=== PATIENT | female | born 1990 | race Caucasian/White ===

== ENCOUNTER 2022-02-07 12:54 | Outpatient (CLI) | payer BC, SELFPAY ==
--- NOTE | 2022-02-07 13:00 | CRLHL7_ITS ---
For Patients: As a result of the Century Cures Act, medical imaging exams and procedure reports are released immediately into your electronic medical record. You may view this report before your referring provider. If you have questions, please contact your health care provider. INDICATION: Evaluate anatomy. COMPARISON: 11/08/2021 TECHNIQUE: Real time robledo scale imaging of the fetus was performed as well as color Doppler analysis of the umbilical vessels. FINDINGS: Sonographic imaging demonstrates a single living intrauterine gestation. Fetus demonstrates a regular cardiac rate of 159 beats per minute. Fetus has a breech position. The placenta lies posteriorly without evidence of placenta previa. The edge of the placenta is located 3.1 cm from the internal cervical os. Amniotic fluid volume appears normal. Single deepest vertical pocket: 5.2 cm. The cervix is closed and measures 4.8 cm in length. The composite ultrasound gestational age is calculated at 20 weeks 4 days with an estimated sonographic due date of 06/23/2022. The estimated weight is 389 grams which lies at the 74th %. The following biometric measurements were obtained: Biparietal diameter: 4.4 cm/19 weeks 3 days 13th% Head circumference: 18.0 cm/20 weeks 3 days 39th% Abdominal circumference: 16.6 cm/21 weeks 4 days 81st% Femur length: 3.3 cm/20 weeks 3 days 43rd% The HC/AC ratio measures: 1.08 range (1.07-1.25) On anatomic survey, there is a normal appearance of the cerebral ventricles, cavum septi pellucidi, cisterna magna and cerebellum. The nose, lips, and facial profile appear normal. The cervical, thoracic and lumbar spine are well visualized and appear normal. There is a normal four-chamber heart view and the left and right ventricular outflow tracts appear normal. The diaphragm and stomach appear normal. The kidneys and bladder also appear normal. There is a normal three-vessel cord and cord insertion site. The four extremities appear normal. IMPRESSION: Normal OB ultrasound exam with concordance of clinical and sonographic dating. No intrinsic abnormalities noted on anatomic survey. Dictated by Dell Melissa MD @ 02/07/2022 3:09:31 PM (Electronically Signed)
== END 2022-02-07 12:55 | disposition home or self-care (01) ==
LOC: US 12:56
PROVIDERS: Visit Provider Obstetrics & Gynecology
DX: Z34.92 Encounter for supervision of normal pregnancy, unspecified, second trimester (principal); Z3A.20 20 weeks gestation of pregnancy
CPT/HCPCS: 76805

== ENCOUNTER 2022-04-03 12:07 | Outpatient (CLI) | payer BC, SELFPAY ==
[2022-04-06 09:59] LABS: Rapid Plasma Reagin (RPR) Non Reactive (Non Reactive)
== END 2022-04-03 12:08 | disposition home or self-care (01) ==
PROVIDERS: Visit Provider Physician Assistant
DX: O26.899 Other specified pregnancy related conditions, unspecified trimester (principal); Z67.91 Unspecified blood type, Rh negative; E03.9 Hypothyroidism, unspecified; Z3A.28 28 weeks gestation of pregnancy
CPT/HCPCS: 84443; 86592; 86850

== ENCOUNTER 2022-05-02 14:00 | Outpatient (CLI) | payer BC, SELFPAY ==
--- NOTE | 2022-05-02 14:00 | CRLHL7_ITS ---
For Patients: As a result of the Century Cures Act, medical imaging exams and procedure reports are released immediately into your electronic medical record. You may view this report before your referring provider. If you have questions, please contact your health care provider. INDICATION: Third trimester scan, evaluate growth. COMPARISON: 02/07/2022 TECHNIQUE: Real time robledo scale imaging of the fetus was performed. FINDINGS: Sonographic imaging demonstrates a single living intrauterine gestation. Fetus demonstrates a regular cardiac rate of 143 beats per minute. Fetus has a vertex position. The placenta lies posteriorly. Amniotic fluid volume appears normal and there is a single deepest vertical pocket: 4.2 cm. The estimated weight is 2240gm which lies at the 78th %. On the prior OB ultrasound exam dated 02/07/2022 the estimated weight was at the 74th%. BPD 10th percentile. HC 33rd percentile. AC 92nd percentile. FL 70th percentile. The HC/AC ratio measures 0.99 range (0.96-1.11). IMPRESSION: Sonographic gestational age 33 weeks 0 days and sonographic due date 06/20/2022. Sonographic age is 4 days ahead of the clinical age. Estimated weight 78th percentile. Abdominal circumference 92nd percentile. Dictated by Dell Melissa MD @ 05/05/2022 10:08:02 AM (Electronically Signed)
== END 2022-05-02 14:01 | disposition home or self-care (01) ==
LOC: US 14:01
PROVIDERS: Visit Provider Physician Assistant
DX: O98.513 Other viral diseases complicating pregnancy, third trimester (principal); U07.1 COVID-19; Z3A.33 33 weeks gestation of pregnancy
CPT/HCPCS: 76816

== ENCOUNTER 2022-06-02 13:14 | Outpatient (CLI) | payer BC, SELFPAY ==
--- NOTE | 2022-06-02 13:00 | CRLHL7_ITS ---
For Patients: As a result of the Century Cures Act, medical imaging exams and procedure reports are released immediately into your electronic medical record. You may view this report before your referring provider. If you have questions, please contact your health care provider. INDICATION: Third trimester scan, evaluate growth. +Covid in COMPARISON: 05/02/2022 TECHNIQUE: Real time robledo scale imaging of the fetus was performed. FINDINGS: Sonographic imaging demonstrates a single living intrauterine gestation. Fetus demonstrates a regular cardiac rate of 150 beats per minute. Fetus has a vertex position. The placenta lies fundal posterior. Amniotic fluid volume appears normal and there is a single deepest vertical pocket: 6.1 cm. The estimated weight is 3291gm which lies at the 78th %. On the prior OB ultrasound exam dated 05/02/2022 the estimated weight was at the 78th%. BPD 10th percentile. HC 40th percentile. AC greater than 97th percentile. FL 11th percentile. The HC/AC ratio measures 0.93 range (0.92-1.06). IMPRESSION: Sonographic gestational age 36 weeks 5 days and sonographic due date 06/25/2022. Good correlation with dates. Normal interval growth. Estimated weight at the 78th percentile. Abdominal circumference greater than 97th percentile. Dictated by Dell Melissa MD @ 06/04/2022 8:40:21 AM (Electronically Signed)
== END 2022-06-02 13:15 | disposition home or self-care (01) ==
LOC: US 13:15
PROVIDERS: Visit Provider Obstetrics & Gynecology
DX: O98.512 Other viral diseases complicating pregnancy, second trimester (principal); U07.1 COVID-19; Z3A.36 36 weeks gestation of pregnancy
CPT/HCPCS: 76816; 87081; 87653

== ENCOUNTER 2022-06-21 21:33 | Inpatient (IN) | payer BC, SELFPAY ==
[2022-06-21 21:46] VITALS: BP 125/71; PULSE 71; PULSE 87; O2SAT 97
--- NOTE | 2022-06-21 22:03 | PM.OBHPLI ---
OB - H&P: HPI Labor/Induction History of Present Illness Time Seen by Provider: 22:03 Date Seen: 06/21/22 Chief Complaint: Labor Chief complaint: Maternity Narrative: The patient is a 32 year old 3 para 1011 at 39 weeks 4 days gestation by ultrasound, who presents with labor. Patient complaining of contractions every 3-5 minutes lasting for approximately 1 minute each. She endorses loss of mucous plug but no vaginal bleeding since. Denies LOF. Patient presents to L&D at 8-9 cm dilation with regular contractions. Patient denies fever, chills, chest pain, SOB, n/v, headache, vision changes, RUQ pain, or dizziness. Review of Systems Status of ROS: Reports: 10 or more systems reviewed and unremarkable except as noted in History and below Meds Home Medications and Allergies Home Medications Medication Instructions Recorded Confirmed Type docosahexaenoic acid 200 mg 200 mg PO DAILY 02/07/22 06/21/22 History capsule ( DHA) doxylamine succinate 25 mg tablet 25 mg PO .Bedtime 02/07/22 06/21/22 History magnesium oxide 400 mg (241.3 mg 400 mg PO DAILY 02/07/22 06/21/22 History magnesium) tablet omeprazole 20 mg tablet,delayed 20 mg PO QDAY 02/28/22 06/21/22 History release aspirin 81 mg capsule 81 mg PO QDAY 04/03/22 06/21/22 History butalbital 50 mg-acetaminophen 300 1 cap PO Q6H PRN 05/02/22 06/21/22 History mg capsule Allergies Allergy/AdvReac Type Severity Reaction Status Date / Time No Known Allergies Allergy Unverified 06/16/22 13:01 OB - H&P: Exam Physical Exam: Vital signs: Pulse BP Pulse Ox 71 125/71 97 06/21/22 21:46 06/21/22 21:46 06/21/22 21:46 Narrative: Physical exam: General: Wincing when she's lilly otherwise, no acute distress. Psych: Alert and oriented x3, full affect HEENT: Normocephalic, atraumatic Lungs: Unlabored breathing between contractions. Abdomen: Palpable contractions. Otherwise, soft, no tenderness, rebound, or guarding. Skin: No lesions or rashes Lower extremities: No edema or erythema Pelvic: SVE 9/100/-1
[2022-06-21 22:20] LABS: SARS PCR* Negative SARS-CoV-2 (Negative)
[2022-06-21] MEDS: OXYTOCIN 10 UNIT/ML INJ IM (23:08)
[2022-06-21] MEDS: LIDOCAINE 1% MDV 20 ML INJECTION (23:13)
[2022-06-21 23:17] VITALS: BP 127/75; PULSE 85
--- NOTE | 2022-06-21 23:29 | PM.OBPRCVD ---
Procedure Delivery date: 06/21/22 Procedure Done: Global Intrapartal Events: None Delivery monitor: external FHT Route of delivery: Episiotomy description: None Laceration description: Perineal - 1st Degree Delivery repair: Chromic Estimated blood loss (mL): 150 Anesthesia type: Nitrous gas Disposition: floor Complications: None Narrative: The patient is a 32 year-old G 3 P 1011 admitted on 06/21/2022 at 39 and 4/7 weeks gestation for spontaneous onset of labor. Cervical exam on admission was 9 cm/100 % effaced/-1station with membranes intact in vertex presentation. Contractions were every 3-5 minutes. heart rate demonstrated baseline 150 bpm with moderate variability, + accelerations, - decelerations; a category I tracing. GBS negative. SROM occurred at 1213 on 06/21 with clear fluid. Labor Analgesia: Nitrous Gas Pitocin: No Labor onset: 06/21 at 1820 Complete: 06/21 at 2242 Pushin/3 at 2254 Delivery time: 2305 heart tones during second stage were Cat II At time a viable male delivered in vertex OA presentation over intact perineum via spontaneous vaginal delivery. Infant was placed on maternal abdomen. Cord was clamped and cut. Nose and mouth were bulb suctioned. weight: 7lb 10oz. 7 at 1 minute and 8 at 5 minutes. Shoulder dystocia: No. Nuchal cord: No. Terminal meconium noted. Placenta delivered spontaneously and complete at 2306 with a 3 vessel cord. Complications: None. Mother and were stable after delivery. Laceration(s): 1st degree, repaired with 2-0 chromic. Estimated blood loss: 150 mL. Sponge and needles counts are correct. Mother and were stable at the time of this note. Infant Gender: Male OB Vag Delivery Procedures Additional Procedures ECV: No Cook Catheter Insertion: No NST: Yes D&C: No Laceration Repair: Yes Tubal Ligation : No Other: No
[2022-06-21 23:32] VITALS: BP 127/63; PULSE 85
[2022-06-21 23:47] VITALS: BP 128/64; PULSE 84
[2022-06-21 23:54] VITALS: BMI 40.6
[2022-06-22] VITALS (11 sets, daily range): BP systolic 120–138; BP diastolic 57–86; PULSE 75–95; RESP 16–18; TEMP 36.3–36.8; O2SAT 94–96
[2022-06-22] MEDS: IBUPROFEN 600 MG TABLET PO ×4 (00:13→21:21)
[2022-06-22] MEDS: ACETAMINOPHEN 500 MG TABLET 1000 MG PO ×2 (02:24→17:14)
[2022-06-22 07:30] LABS: Hemoglobin* 12.7 gm/dL (12.0-16.0)
[2022-06-22] MEDS: MEASLES,MUMPS,RUBELLA VACC/PF 1 DOSE INJ 1 EACH SUBCUT (08:30)
[2022-06-22] MEDS: DOCUSATE SODIUM 100 MG CAPSULE PO (08:30)
--- NOTE | 2022-06-22 08:38 | PM.OBPNVD1 ---
OB - PN:Subj Subjective Time Seen by Provider: 08:38 Date Seen: 06/22/22 Narrative: Overnight patient had no complaints. Her pain is well controlled on oral pain medications. She is tolerating a regular diet. She has passed flatus. She is ambulating without difficulty. Lochia is scant. She is urinating without glasgow. Patient denies chest pain, SOB, n/v, headache, RUQ pain, vision changes, dizziness. OB - PN: Obj Exam Physical Exam: Vital signs: Temp Pulse Resp BP Pulse Ox O2 Del Method 97.7 F 95 18 129/82 96 06/22/22 07:30 06/22/22 07:30 06/22/22 07:30 06/22/22 07:30 06/22/22 07:30 06/22/22 07:30 Narrative: Physical exam: General: No acute distress Psych: Alert and oriented x3, full affect HEENT: Normocephalic, atraumatic Heart: Regular rate and rhythm, no murmur rub or gallop Lungs: Clear to auscultation bilaterally Abdomen: Normoactive bowel sounds, soft, no tenderness, rebound, or guarding Skin: No lesions or rashes Lower extremities: No edema or erythema Pelvic exam: Scant lochia OB - PN: Obj Data Labs Labs: Laboratory Results - last 24 hr 06/21/22 06/22/22 21:31 07:08 Hgb 12.7 SARS-CoV-2 (PCR) Negative SARS-CoV-2 OB - PN: A/P Vaginal Delivery Assessment and Plan (1) Status post vaginal delivery: Status: Acute (2) Rubella non-immune status, delivered, current hospitalization: Status: Acute Plan Comments: Review: - Admitted for: labor - Normal spontaneous vaginal delivery - Estimated blood loss: 150 mL - Intraoperative Complications: none - Urine output: adequate - Pre-delivery Hgb: 12.7 - Post-delivery Hgb: 12.7 - Postoperative care: - Diet: Advance as tolerated - Fluid: Encourage oral intake - Activity: Encourage ambulation - Pain: Tylenol and Ibuprofen Discharge Planning - Vaccines: MMR, possible Rhogam - Follow Up: follow-up in 2 and 6 weeks in clinic Baby's Status - Fetus: 7, 8/ 3540 g, Male - Location: bedside Dispo: Patient is PPD#1. Need the following milestones: None. Not yet 24 hour s/p delivery. Anticipate discharge PPD#2.
[2022-06-23] VITALS: BP 120/76; BP 138/89; PULSE 91; PULSE 92; RESP 18; TEMP 36.4; TEMP 36.8; O2SAT 95; O2SAT 96
[2022-06-23] MEDS: ACETAMINOPHEN 500 MG TABLET 1000 MG PO ×3 (00:23→14:19)
[2022-06-23 04:00] VITALS: BP 125/89
[2022-06-23] MEDS: IBUPROFEN 600 MG TABLET PO ×3 (04:16→17:29)
--- NOTE | 2022-06-23 07:40 | PM.OBDSVD1 ---
DS: Providers Provider Date Seen: 06/23/22 Date of admission: 06/21/22 21:33 Primary care physician: Not a Local Provider Admitting Clinician: Evangelina Sue MD Attending Physician on discharge: Katerina Cisneros CNM DS: Diagnosis Discharge Diagnosis (1) care and examination immediately after delivery: Status: Acute (2) Status post vaginal delivery: Status: Acute (3) Lactating mother: Status: Acute Exam Const: Vital Signs, click to edit/add: Vital Signs - 24 hr 06/22/22 13:25 06/22/22 17:26 06/22/22 20:00 Temperature 97.6 F 97.3 F L Pulse Rate [Pulse Oximeter] 86 81 91 Respiratory Rate 16 16 18 Blood Pressure [Le ft Arm] 126/85 138/86 120/76 Pulse Oximetry 94 95 Oxygen Delivery Me thod Room Air Room Air Room Air 06/23/22 00:00 06/23/22 00:00 06/23/22 04:00 Temperature 97.6 F 98.3 F Pulse Rate [Pulse Oximeter] 91 92 Respiratory Rate 18 18 Blood Pressure [Le ft Arm] 120/76 138/89 125/89 Pulse Oximetry 95 96 Oxygen Delivery Me thod Room Air Room Air Documenting provider has reviewed patient's vital signs: yes Common normals: no apparent distress, oriented x3, healthy appearing and alert HENMT: Common normals: normocephalic Head and scalp: normocephalic Eye: Common normals: PERRL Pupil: PERRL Neck & C-Spine: Common normals: full ROM and supple Chest: Common normals: inspection of chest normal Resp: Common normals: normal respiratory effort and clear to auscultation bilaterally Auscultation: clear to auscultation bilaterally Cardio: Common normals: regular rate and regular rhythm Rate: regular rate Rhythm: regular rhythm GI: Common normals: soft to palpation Palpation: soft : OB/external & speculum: Yes perineal/vaginal laceration Laceration: 1st (well approximated) Uterus: U/U Lochia: small Back & Pelvis: Common normals: thoracic and lumbar spine normal to inspection Extremity: Common normals: normal to inspection and full ROM Neuro: Common normals: oriented x3 Sensorium/orientation: alert Speech: speech normal Psych: Common normals: mental status grossly normal, thought process normal, speech normal and activity/motor behavior normal Speech: normal speech Thought process: normal thought process Skin: Common normals: no rashes or lesions noted General skin exam: no rashes or lesions noted OB - DS: Summary Hospital Course Hospital Course: The patient is a 32 year old G 3 P 2012 at 39 4/7 weeks gestation that was admitted to the [facility] on 06/21/22 for spontaneous onset of labor. She had an uncomplicated vaginal delivery. She delivered a viable male infant. the patient has done well. The pain is well controlled with current medications.? She has has concerns about her cough which started about 2 months ago but causing her pain when she coughs. Plan to try albuterol inhaler and Robitussin.? Urinary output is adequate and she is voiding without difficulty.? Has a good appetite, is tolerating a general diet, is passing flatus, and has had a bowel movement.? Has scant amount of rubra lochia.? She is ambulating well. She is and reports it is going well. Peripartum Data Infant delivery method: Vaginal Laceration description: Perineal - 1st Degree complications: none Infant Gender: Male Infant Discharge Plan: Home Status at Discharge Functional status at discharge: independent ambulation Overall status at discharge: patient is progressing back to baseline Time Spent with Patient Time attestation: Total time spent providing and/or coordinating discharge services: Discharge Plan Discharge Disposition: Home, Self-Care Date of Admission: 06/21/22 21:33 Primary Care Provider: Provider,Not a Local Condition: Stable Anticipated Discharge Date/Time: 06/23/22 08:00 Discharge Medications: New acetaminophen 500 mg Tablet 1,000 mg PO Q6H PRNQty: 0 0RF guaifenesin 100 mg/5 mL Liquid 100 mg PO Q4H PRN (Reason: Cough) Qty: 0 0RF docusate sodium 100 mg Capsule 100 mg PO DAILY Qty: 90 0RF ibuprofen 600 mg Tablet 600 mg PO Q6H PRNQty: 0 0RF albuterol sulfate [Ventolin HFA] 90 mcg/actuation Hfa Aerosol Inhaler 2 puff inhalation Q4H PRN (Reason: Cough) Qty: 0 0RF Continued aspirin 81 mg capsule 81 mg PO QDAY butalbital-acetaminophen 50-300 mg capsule 1 cap PO Q6H PRN DHA 200 mg capsule 200 mg PO DAILY magnesium oxide 400 mg (241.3 mg magnesium) tablet 400 mg PO DAILY omeprazole 20 mg tablet,delayed release (DR/EC) 20 mg PO QDAY levothyroxine 50 mcg tablet 50 mcg PO DAILY Qty: 90 0RF Discontinued doxylamine succinate 25 mg tablet 25 mg PO .Bedtime Discharge Orders: Discharge Order (Routine); Ordered 06/23/22 Ordered By: Katerina Cisneros Patient Education: OB Vaginal/Breast Feeding Additional Instructions: Discharge instructions were reviewed with the patient including signs and symptoms of infection and home going medications Nothing vaginally for 6 weeks: no tampons or intercourse Do not drive while taking narcotic pain medication(s) Off Work or School for 8 weeks 2-week visit: discuss feeding concerns, review control options and screen for anxiety/depression. 6-week visit for an annual exam. consultation services are available to all mothers and babies for the first year after delivery.? To make an appointment, please call [phone]. Activity Level: Activity as Tolerated Discharge Diet: Regular Follow Up Appointments: [facility] [Provider Group] (2 weeks and 6 weeks) Forms: mobiManage Info Instructions
[2022-06-23 08:30] VITALS: BP 121/83; PULSE 83; RESP 18; TEMP 36.8; O2SAT 97
[2022-06-23] MEDS: ALBUTEROL INHALER 2 PUFF IH (09:39)
[2022-06-23] MEDS: guaiFENesin 100 MG/ML CUP PO (09:39)
[2022-06-23] MEDS: LANOLIN CREAM 1 APPLIC TOPICAL (09:52)
[2022-06-23] MEDS: DOCUSATE SODIUM 100 MG CAPSULE PO (14:20)
[2022-06-23 15:19] VITALS: BP 130/82; PULSE 84; RESP 16; TEMP 36.8; O2SAT 96
[2022-06-23] MEDS: SIMETHICONE 80 MG TAB.CHEW PO (17:30)
== END 2022-06-23 19:33 | disposition home or self-care (01) | DRG 560 ==
LOC: OB OUT 21:33 → OB 21:33
PROVIDERS: Admitting Provider Obstetrics & Gynecology; Visit Provider Obstetrics & Gynecology
DX: O70.0 First degree perineal laceration during delivery (principal); O99.284 Endocrine, nutritional and metabolic diseases complicating childbirth; E03.9 Hypothyroidism, unspecified; Z3A.39 39 weeks gestation of pregnancy; Z37.0 Single live birth
CPT/HCPCS: 36415; 85018; 87635; A9270; J2590

== ENCOUNTER 2023-01-26 10:54 | Outpatient (CLI) | payer OTHER, SELFPAY | END 2023-01-26 10:55 | disposition home or self-care (01) | LOC: NFLDREF 10:55 | PROVIDERS: Visit Provider Obstetrics & Gynecology | DX: E03.9 Hypothyroidism, unspecified (principal) | CPT/HCPCS: 84443 ==

== ENCOUNTER 2024-05-09 13:34 | Outpatient (CLI) | payer BC, SELFPAY | END 2024-05-09 13:35 | disposition home or self-care (01) | LOC: NFLDREF 05-12 06:01 | PROVIDERS: Visit Provider Obstetrics & Gynecology | DX: E03.9 Hypothyroidism, unspecified (principal) | CPT/HCPCS: 84443 ==

== ENCOUNTER 2024-10-07 13:36 | Outpatient (CLI) | payer BC, SELFPAY ==
--- NOTE | 2024-10-07 13:45 | CRLHL7_ITS ---
For Patients: As a result of the Century Cures Act, medical imaging exams and procedure reports are released immediately into your electronic medical record. You may view this report before your referring provider. If you have questions, please contact your health care provider. INDICATION: First trimester dating and viability. TECHNIQUE: Ultrasound OB pelvis transabdominal and transvaginal. Real-time robledo-scale imaging of the pelvis was performed. COMPARISON: None. FINDINGS: Intrauterine gestation: Single. heart activity (bpm): Regular, 169. [place]iteriver-rump length: 5.6 cm. Estimated ultrasound age: 12 weeks 1 day. Gestational age by LMP: 12 weeks 0 day OSCAR by ultrasound: 04/20/2025. OSCAR by LMP: 04/21/2025 Perigestational hemorrhage: Subchorionic hemorrhage measures 2.3 x 0.9 x 2.2 cm. Ovaries and adnexa: Unremarkable. Corpus luteal cyst is identified on the left side. Suspicious pelvic fluid collections: None. IMPRESSION: Single viable intrauterine with estimated gestational age of 12 weeks 1 day. Small subchorionic hemorrhage. Dictated by Yaw Solis MD @ 10/10/2024 12:37:42 PM (Electronically Signed)
== END 2024-10-07 13:37 | disposition home or self-care (01) ==
LOC: US 13:38
PROVIDERS: Visit Provider Registered Nurse
DX: Z34.91 Encounter for supervision of normal pregnancy, unspecified, first trimester (principal); O20.9 Hemorrhage in early pregnancy, unspecified; Z3A.12 12 weeks gestation of pregnancy
CPT/HCPCS: 76801; 83021; 84439; 84443; 86592; 86703; 86704; 86706; 86762; 86787; 86803; 86850; 86900; 86901; 87086; 87340; 87491; 87591; 87624; 88142

== ENCOUNTER 2024-10-07 14:45 | Outpatient (CLI) | payer BC, SELFPAY ==
[2024-10-07 19:00] LABS: Chlamydia DNA Amplified* NOT DETECTED (No Detected); GC DNA Amplified* NOT DETECTED (No Detected)
[2024-10-11 17:44] LABS: HPV Source Cervix; HPV, High Risk by TMA Not Detected
== END 2024-10-07 14:46 | disposition home or self-care (01) ==
PROVIDERS: Visit Provider Registered Nurse
DX: Z34.91 Encounter for supervision of normal pregnancy, unspecified, first trimester (principal); Z12.4 Encounter for screening for malignant neoplasm of cervix; Z3A.12 12 weeks gestation of pregnancy; E03.9 Hypothyroidism, unspecified
CPT/HCPCS: 83020; 83021; 84439; 84443; 85660; 86592; 86703; 86704; 86706; 86762; 86787; 86803; 86850; 86900; 86901; 87086; 87340; 87491; 87591; 87624; 87625; 88141; 88142

== ENCOUNTER 2024-10-07 15:52 | Emergency (ER) | payer BC, SELFPAY ==
--- OUTSIDE RECORDS SUMMARY | 2024-10-07 15:54 | XMS_ITS | Clinical Summary ---
Author Organization [facility] Address [facility] [place] [address] Care Team Providers Care Labor Economics Professor Name Role Phone Pcp, No Primary Care Provider Unavailabl e Allergies No known active allergies Medications docusate (COLACE) 100 mg capsule Take 100 mg by mouth at bedtime if needed. 01/09/2020 Active ibuprofen (ADVIL; MOTRIN) 600 mg tablet Take 600 mg by mouth every 6 hours if needed. 01/09/2020 Active Magnesium Oxide 500 mg tab Take 500 mg by mouth once daily. Active vit,jd 74/iron/folic ( VITAMIN 1+1 ORAL) Take 1 tablet by mouth once daily. Active Social History Tobacco Use Types Packs/Day Years Used Date Smoking Tobacco: Never Assessed Comments No Sex and Gender Information Value Date Recorded Sex Assigned at Not on file Legal Sex Female 7:00 AM [employer]UC[employer] PROFESSIONAL Gender Identity Not on file Sexual Orientation Not on file Last Filed Vital Signs Vital Sign Reading Time Taken Comments Blood Pressure 135/92 01/22/2020 3:12 PM CDT Pulse 111 01/22/2020 3:43 PM CDT Temperature 37.1 C (98.8 F) 01/22/2020 3:12 PM CDT Respiratory Rate 20 01/22/2020 3:12 PM CDT Oxygen Saturation 98% 01/22/2020 3:12 PM CDT Inhaled Oxygen Concentration - - Weight 100.2 kg (221 lb) 01/22/2020 3:12 PM CDT Height 172.7 cm (5' 8) 01/22/2020 3:12 PM CDT Body Mass Index 33.6 01/22/2020 3:12 PM CDT Plan of Treatment Health Maintenance Due Date Last Done Comments Tdap 02/02/2003 Depression screening for age 12+ 2004 HIV for age 15-65 02/02/2007 BMI (ht and wt on same day) for age 18+ 02/02/2010 Hepatitis C screening for ag e 18-79 02/02/2010 Tetanus booster 2012 ([place]) Influenza for age 9-49 03/20/2024 COVID-19 vaccine series ( season) 2024 07/05/2021, 11/26/2020, 10/31/2020 Pap test for age 21-65 08/28/2024 08/28/2021 Pneumococcal series for age 6-49 Aged Out No longer eligible b ased on patient's age to complete this topic Procedures Procedure Name Priority Date/Time Associated Diagnosis Comments ASSEMBLER ARRANGER THIN PREP PAP SCREEN IMAGED Routine 08/28/2021 2:15 PM [employer]UCATION PARA PROFESSIONAL from Last 3 Months or Most Recently Relevant to Health Maintenance Results * ASSEMBLER ARRANGER THIN PREP PAP SCREEN IMAGED (08/28/2021 2:15 PM [employer] EDUCATION PARA PROFESSIONAL) Case Report Gynecologic Cytology Report Case: [id number] Authorizing Provider: Irene Robbins MD Collected: 08/28/2021 1415 Ordering Location: [facility] Received: 08/30/2021 0941 First Screen: Angie Young Specimen: ASSEMBLER ARRANGER ThinPrep Vial Screening, Cervical/Vaginal 09/06/2021 10:49 AM SPECIAL EDUCATION PARA PROFESSIONAL [facility] INTERPRETATION/ RESULT NEGATIVE FOR INTRAEPITHELIAL LESION OR MALIGNANCY (NIL) (none) 09/06/2021 10:49 AM SPECIAL EDUCATION PARA PROFESSIONAL [facility] IMEN ADEQUACY Satisfactory for evaluation Endocervical component present 09/06/2021 10:49 AM SPECIAL EDUCATION PARA PROFESSIONAL [facility] HPV REQUEST HPV if ASCUS 09/06/2021 10:49 AM SPECIAL EDUCATION PARA PROFESSIONAL [facility] Date of LMP 08/18/2021 09/06/2021 10:49 AM [employer] EDUCATION PARA PROFESSIONAL [facility] Last Pap Date 12/29/2017 09/06/2021 10:49 AM [facility] Last Pap Result NIL 10:49 AM [facility] Additional Information 09/06/2021 10:49 AM [facility] Comment: Interpreted at [facility] - [address], [place] [address] Automated Review Successful 09/06/2021 10:49 AM [facility] Comment:Specimen processed s uccessfully by automated leather goods i assembler device, ThinPrep Imaging System, [employer] Note The pap test is a screening technique, not a diagnostic procedure. It is used primarily to screen for squamous cancers and precursor lesions. Published studies have shown that it is subject to both false negative and false positive results. The pap test should not be used as the sole means to diagnose or exclude pre-malignant and malignant lesions. 09/06/2021 10:49 AM [facility] Other (Cervical/Vagina l) 08/28/2021 2:15 PM [employer] EDUCATION PARA PROFESSIONAL 08/30/2021 9:41 AM SPECIAL EDUCATION PARA PROFESSIONAL us Irene Robbins MD PATHOLOGY/CYTOLOGY Final Result [facility] [address] [place] [address], [place] from Last 3 Months or Most Recently Relevant to Health Maintenance Care Teams Labor Economics Professor Relationship Specialty Start Date End Date Pcp, No . PCP - General 01/22/20
[2024-10-07 15:57] VITALS: BP 112/73; PULSE 126; RESP 18; TEMP 36.6; O2SAT 100; BMI 34.0
--- NOTE | 2024-10-07 16:21 | ED_ITS ---
HPI - General Adult General Date Seen: 10/07/24 Chief complaint: Unspecified Complaint, Adult Stated complaint: Abnormal EKG Time Seen by Provider: 10/07/24 15:54 History of Present Illness HPI narrative: Patient is a 34-year-old woman, G3, P0 sent from OB clinic for evaluation of chest tightness. She tells me that she has been having the symptoms for about 3 months, she is not entirely certain whether it started before this or at the beginning of this . She notes symptoms when she for example runs up stairs carrying a basket of laundry, she says it feels like her heart is working too hard and her ribs are too tight. This lasts for a couple of minutes and then resolves. She says however that symptoms are not limited to exertion, it can really happen at any time and then resolves spontaneously. None of this has worsened at all over the past few months, and she just thought it was regular related symptoms. She brought it up at clinic today, an EKG was done. I do not have the clinic EKG but it was reviewed by another emergency physician who did not see any concerning findings. She was sent here for further evaluation of her chest symptoms. She feels short of breath when she has the symptoms. She denies other problems like fever cough, she has not had vomiting or diarrhea, has not had any bleeding. Has not had unusual leg swelling. No history of DVT or PE although her mom does have a history of PE. She does not smoke. General health otherwise good, denies other complications with her 1st 2 pregnancies. Related Data Home Medications ?Medication ?Instructions ?Recorded ?Confirmed docosahexaenoic acid 200 mg 200 mg PO DAILY 02/07/22 10/07/24 capsule ( DHA) magnesium oxide 400 mg (241.3 mg 400 mg PO DAILY 02/07/22 10/07/24 magnesium) tablet omega 8-fds-jsn-fish oil 60 mg-90 1 cap PO QDAY 05/09/24 10/07/24 mg-500 mg capsule (Fish Oil) Previous Rx's ?Medication ?Instructions ?Recorded levothyroxine 50 mcg tablet 50 mcg PO DAILY #90 tabs 05/09/24 Allergies Allergy/AdvReac Type Severity Reaction Status Date / Time No Known Allergies Allergy Verified 10/07/24 16:04 Review of Systems Status of ROS: Reports: 10 or more systems reviewed and unremarkable except as noted in History and below [facility] Medical History Rubella non-immune status, delivered, current hospitalization ?O99.892 - Other specified diseases and conditions complicating childbirth (ICD-10) ?Z28.39 - Other underimmunization status (ICD-10) Health care directive on file ?Z78.9 - Other specified health status (ICD-10) COVID-19 affecting in second trimester ?O98.512 - Other viral diseases complicating , second trimester (ICD-10) ?U07.1 - COVID-19 (ICD-10) Hypothyroidism ?E03.9 - Hypothyroidism, unspecified (ICD-10) ?Z34.90 - Encounter for supervision of normal , unspecified, unspecified trimester (ICD-10) Vaginal delivery (01/07/20) ?O80 - Encounter for full-term uncomplicated delivery (ICD-10) Anxiety with depression ?F41.8 - Other specified anxiety disorders (ICD-10) Social History Narrative: Health care directive on file- completed on 11/05/2019, reviewed and sent for scanning 01/04/2020 What is your current living situation?: I presently have a place to live Problems where you live: no known problems In the past 12 months, utilities in danger of being shut off: no In past 12 months, lack of transportation kept you from medical appts, meetings, work, or getting things needed for daily living: no In the past 12 mos, have been you worried that your food would run out before you had money to buy more?: never true In the past 12 mos, the food you bought just didn't last and you didn't have money to buy more?: never true Smoking Status: Never smoker How often does anyone, including family, friends and others, physically hurt you : never How often does anyone, including family, friends and others, insult or talk down to you: never How often does anyone, including family, friends and others, threaten you with harm: never How often does anyone, including family, friends and others, scream or curse at you: never Exam Narrative: Exam Narrative: Vital signs reviewed In general, alert, nontoxic Young woman. Breathing easily. Head: Normocephalic, atraumatic. Eyes: Sclera clear. Pupils equal and reactive. ENT: Mucous membranes moist. Neck: Supple without adenopathy. Heart: Regular rate and rhythm without murmur. Lungs: Clear. No increased work of breathing, crackles or wheezes. Abdomen: Soft, nontender to palpation. Extremities: Well perfused, pulses intact. No significant edema. Neurologic: Alert, conversant. Speech fluent, face symmetric. Moves all extremities equally. Skin: Warm, dry well perfused. Affect: Normal. Const: Vital Signs, click to edit/add: Vital Signs - 24 hr 10/07/24 15:57 Temperature 97.8 F Pulse Rate [Right Pulse Oximeter] 126 H Respiratory Rate 18 Blood Pressure [Ri ght Upper Arm] 112/73 Pulse Oximetry 100 Oxygen Delivery Me thod Room Air Course Course ED Course: As we did not have this clinic EKG available to us, we repeated an EKG here. This shows a mild sinus tachycardia ventricular rate of 104. No acute ST segment changes. Unremarkable T-waves. normal indices and axes. Discussed with her that the likelihood this represents coronary artery disease is quite low given her age and lack of risk factors. I think PE is also relatively unlikely given that this has been going on for several months now, but given her family history and status is will check a D-dimer. Reviewed with her that if this is abnormal relative to her status, that we would recommend doing a CT scan. Other diagnostic considerations would include myocarditis or cardiomyopathy, chest wall symptoms, anxiety, esophagitis among others. Patient had the EKG done as noted above. She says that at the clinic they put the stickers all on the right side of her chest and up the left side, which she feels explains why the EKG may not have look normal. As a result, she just does not feel like she needs any kind of further evaluation. She says that they were not at all worried about her symptoms until they did the EKG, which was subsequently noted to have been abnormal. Given that her EKG here, done correctly, looks normal, she think she would have been sent over here in the 1st place and does not want further workup. She understands that there are some serious diagnoses still on her list such as pulmonary embolism or cardiomyopathy, but believes that given her symptoms have been ongoing and stable for 3 months the likelihood of that is low. She assures me she will be seen right away if things are changing or getting worse. As result, will not do further workup here, follow-up with OB as planned, return at any point for worsening symptoms. Vital Signs Vital signs: Initial Vital Signs Temperature 97.8 F 10/07/24 15:57 Temperature Source Temporal Artery Scan 10/07/24 15:57 Pulse Rate 126 H 10/07/24 15:57 Pulse Rhythm Regular 10/07/24 15:57 Respiratory Rate 18 10/07/24 15:57 Blood Pressure 112/73 10/07/24 15:57 Blood Pressure Mean 86 10/07/24 15:57 Pulse Oximetry 100 10/07/24 15:57 Oxygen Delivery Method Room Air 10/07/24 15:57 Vital Signs Temperature 97.8 F 10/07/24 15:57 Pulse Rate 126 H 10/07/24 15:57 Respiratory Rate 18 10/07/24 15:57 Blood Pressure 112/73 10/07/24 15:57 Pulse Oximetry 100 10/07/24 15:57 Oxygen Delivery Method Room Air 10/07/24 15:57 Temperature 97.8 F 10/07/24 15:57 Pulse Rate 126 H 10/07/24 15:57 Respiratory Rate 18 10/07/24 15:57 Blood Pressure 112/73 10/07/24 15:57 Pulse Oximetry 100 10/07/24 15:57 Oxygen Delivery Method Room Air 10/07/24 15:57 Discharge Plan Discharge Clinical Impression: Chest tightness, Patient Disposition: Home, Self-Care Condition: Stable Instructions: Chest Pain (DC) Additional Instructions: if your symptoms are worsening, more persistent, or associated with other new symptoms such as swelling in your legs, fever, you should be seen again right away. Otherwise, continue your OB follow-up. Prescriptions: No Action DHA 200 mg capsule 200 mg PO DAILY magnesium oxide 400 mg (241.3 mg magnesium) tablet 400 mg PO DAILY omega 3-twf-zqy-fish oil [Fish Oil] 60-90-500 mg capsule 1 cap PO QDAY levothyroxine 50 mcg tablet 50 mcg PO DAILY Qty: 90 4RF Follow Up/Referrals: Provider,Not a Local [Primary Care Provider] - Stand Alone Forms: [employer] Info Instructions
--- OUTSIDE RECORDS SUMMARY | 2024-10-07 16:48 | XMS_ITS | Clinical Summary ---
Author Organization [employer] [facility] Address [facility]ly [facility], later [facility] [place] [address] Care Team Providers Care Braker Passenger Train Name Role Phone Pcp, No Primary Care [...] on file Legal Sex Female 7:00 AM HEATING ENGINEER Gender Identity Not on file Sexual Orientation [...] Procedure Name Priority Date/Time Associated Diagnosis Comments PRODUCT SAFETY SPECIALIST THIN PREP PAP SCREEN IMAGED Routine 08/28/2021 2:15 PM HEATING ENGINEER from Last 3 Months or Most Recently Relevant to Health Maintenance Results * PRODUCT SAFETY SPECIALIST THIN PREP PAP SCREEN IMAGED (08/28/2021 2:15 PM HEATING ENGINEER) Case Report Gynecologic Cytology Report Case: [id number] Authorizing Provider: Irene Robbins MD Collected: 08/28/2021 1415 Ordering Location: [facility] Received: 08/30/2021 0941 First Screen: Angie Young Specimen: PRODUCT SAFETY SPECIALIST ThinPrep Vial Screening, Cervical/Vaginal 09/06/2021 10:49 AM HEATING ENGINEER [facility] INTERPRETATION/ RESULT NEGATIVE FOR INTRAEPITHELIAL LESION OR MALIGNANCY (NIL) (none) 09/06/2021 10:49 AM HEATING ENGINEER [facility] IMEN ADEQUACY Satisfactory for evaluation Endocervical component present 09/06/2021 10:49 AM HEATING ENGINEER [facility] HPV REQUEST HPV if ASCUS 09/06/2021 10:49 AM HEATING ENGINEER [facility] Date of LMP 08/18/2021 09/06/2021 10:49 AM HEATING ENGINEER [facility] Last Pap Date 12/29/2017 09/06/2021 10:49 AM [facility] Last Pap Result NIL 10:49 AM [facility] Additional Information 09/06/2021 10:49 AM [facility] Comment: Interpreted at [facility] - [address], [place] [address] Automated Review Successful 09/06/2021 10:49 AM [facility] Comment:Specimen processed s uccessfully by automated computational geneticist device, ThinPrep Imaging System, [employer] Note The pap test is a screening technique, not a diagnostic procedure. It is used primarily to screen for squamous cancers and precursor lesions. Published studies have shown that it is subject to both false negative and false positive results. The pap test should not be used as the sole means to diagnose or exclude pre-malignant and malignant lesions. 09/06/2021 10:49 AM [facility] Other (Cervical/Vagina l) 08/28/2021 2:15 PM HEATING ENGINEER 08/30/2021 9:41 AM HEATING ENGINEER us Irene Robbins MD PATHOLOGY/CYTOLOGY Final Result [facility] [address] [place] [address], [place] from Last 3 Months or Most Recently Relevant to Health Maintenance Care Teams Braker Passenger Train Relationship Specialty Start Date End Date Pcp, No . PCP - General 01/22/20
== END 2024-10-07 16:55 | disposition home or self-care (01) ==
LOC: ED 16:46
PROVIDERS: Emergency Provider Emergency Medicine
DX: R07.89 Other chest pain (principal); Z33.1 Pregnant state, incidental; Z34.91 Encounter for supervision of normal pregnancy, unspecified, first trimester; O20.9 Hemorrhage in early pregnancy, unspecified; Z3A.12 12 weeks gestation of pregnancy
CPT/HCPCS: 76801; 80053; 83021; 84439; 84443; 84484; 85379; 86592; 86703; 86704; 86706; 86762; 86787; 86803; 86850; 86900; 86901; 87086; 87340; 87491; 87591; 87624; 88142; 93005; 99284

== ENCOUNTER 2024-12-05 13:00 | Outpatient (CLI) | payer BC, SELFPAY ==
--- NOTE | 2024-12-05 13:00 | CRLHL7_ITS ---
For Patients: As a result of the Century Cures Act, medical imaging exams and procedure reports are released immediately into your electronic medical record. You may view this report before your referring provider. If you have questions, please contact your health care provider. LMP: 07/15/2024. OSCAR by LMP: 04/21/2025.GA: 20w, 3d. Single. INDICATION: anatomy survey. CERVIX: Visualized. Measurement: 4.8 cm. POSITIONING: Breech. AMNIOTIC FLUID: 3.6 cm SDP. PLACENTA: PLACENTA POSITION: Posterior. PLACENTA TIP TO INTERNAL OS: 4.3 cm. PLACENTAL INSERTION: Central. UMBILICAL CORD: 3 vessel cord. Biometry: BPD: 4.3 cm. 18w, 6d, 4.6 percent. HC: 17 cm. 19w, 5d, 12 percent. AC: 15.4 cm. 20w, 4d, 49.3 percent. FL: 3.3 cm. 20w, 2d, 36.4 percent. EFW: 345.6 g. Weight: - lbs, 12 oz. age by this US: 20w, 1d. OSCAR by this US: 04/23/2025. Percentile by OSCAR: 38.6 percent. heart rate: 150 bpm. SURVEY: Observed Structures Cerebellum: Yes. 2.0 cm; 20w 4d. Cisterna Magna: Yes. 7.1 mm. Nuchal Fold: Yes. 3.9 mm. Lateral Ventricle: Yes. 5.4 mm. CSP: Yes. Midline Falx: Yes. Choroid Plexus: Yes. Spine: Yes. Stomach: Yes. Abd Cord Insertion: Yes. Urinary Bladder: Yes. Kidneys: Yes. Diaphragm: Yes. Nose/lips: Yes. Orbital view: Yes. Profile: Yes. Upper Extremities: Yes. Lower Extremities: Yes. Hands: Yes. Feet: Yes. Four-Chamber Heart: Yes. 3VV: Yes. IMPRESSION: 1. Concordance of clinical and sonographic dating. 2. Incomplete visualization of the LVOT, RVOT and three-vessel trachea view. Also incomplete visualization of the placental cord insertion. Remainder of the anatomic survey normal. Short-term follow-up recommended. Dell Melissa M.D. Diagnostic Radiologist [employer] [employer] [email or web address] ABHISHEK/liang / bM/Dictated by: Dell Melissa MD @ 12/05/2024 4:32:00 PM (Electronically Signed)
== END 2024-12-05 13:01 | disposition home or self-care (01) ==
LOC: US 13:01
PROVIDERS: Visit Provider Registered Nurse
DX: Z34.92 Encounter for supervision of normal pregnancy, unspecified, second trimester (principal); O35.8XX0 Maternal care for other (suspected) fetal abnormality and damage, not applicable or unspecified; Z3A.20 20 weeks gestation of pregnancy
CPT/HCPCS: 76805; 84439; 84443

== ENCOUNTER 2024-12-23 09:09 | Outpatient (CLI) | payer BC, SELFPAY ==
--- NOTE | 2024-12-23 09:15 | CRLHL7_ITS ---
For Patients: As a result of the Cures Act, medical imaging exams and procedure reports are released immediately into your electronic medical record. You may view this report before your referring provider. If you have questions, please contact your health care provider. OB ULTRASOUND FOLLOW-UP LIMITED, 12/23/2024 CLINICAL HISTORY: Follow-up anatomy. COMPARISON: 12/05/2024, 10/07/2024. TECHNIQUE: Real time robledo scale imaging of the fetus was performed. Transabdominal imaging performed. FINDINGS: OSCAR by LMP: 04/21/2025. GA: 23 weeks 0 days. GESTATION: Single. CERVIX: Visualized. POSITION: Multiple. AMNIOTIC FLUID: 4.6 cm SDP. PLACENTA: Technique: TA. Placenta Position: Posterior. DOPPLERS: Heart Rate: 149 bpm. IMPRESSION: Normal four chamber heart, LVOT, RVOT, three vessel trachea view, three vessel view and ductal arch. Central placental cord insertion also noted. Dell Melissa M.D. Diagnostic Radiologist [email or web address] Transcribed: 11:03 am DW/Dictated by: Dell Melissa MD @ 12/26/2024 6:24:00 AM (Electronically Signed)
== END 2024-12-23 09:10 | disposition home or self-care (01) ==
LOC: US 09:09
PROVIDERS: Visit Provider Physician Assistant
DX: Z34.92 Encounter for supervision of normal pregnancy, unspecified, second trimester (principal); Z3A.23 23 weeks gestation of pregnancy
CPT/HCPCS: 76816

== ENCOUNTER 2025-01-26 10:48 | Outpatient (CLI) | payer BC, SELFPAY | END 2025-01-26 10:49 | disposition home or self-care (01) | LOC: NFLDREF 10:49 | PROVIDERS: Visit Provider Obstetrics & Gynecology | DX: O99.282 Endocrine, nutritional and metabolic diseases complicating pregnancy, second trimester (principal); E03.9 Hypothyroidism, unspecified; Z3A.27 27 weeks gestation of pregnancy | CPT/HCPCS: 84443; 86592; 86850; J2791 ==

== ENCOUNTER 2025-03-24 13:09 | Outpatient (CLI) | payer BC, SELFPAY ==
[2025-03-25 12:23] LABS: Strep B DNA Probe Negative (Negative)
[2025-03-25 12:29] LABS: Strep B Susceptibility Needed? No
== END 2025-03-24 13:10 | disposition home or self-care (01) ==
LOC: NFLDREF 13:09
PROVIDERS: Visit Provider Obstetrics & Gynecology
DX: Z34.93 Encounter for supervision of normal pregnancy, unspecified, third trimester (principal)
CPT/HCPCS: 87081; 87653

== ENCOUNTER 2025-04-28 11:19 | Inpatient (IN) | payer BC, SELFPAY ==
[2025-04-28] VITALS (18 sets, daily range): BP systolic 127–151; BP diastolic 64–87; PULSE 71–137; RESP 16–20; TEMP 36.8–36.9; O2SAT 94–100; BMI 37.8
--- NOTE | 2025-04-28 11:50 | P.LDBA_ITS ---
Subjective History of Present Illness Date Seen: 04/28/25 Narrative: Patient is being admitted to Labor and Delivery for postdates IOL. She is a 35 year old at 41 weeks gestation. Her full history and physical was dictated by Dr. Sue on 04/03. Please see this for details. Specific Issues/Plans G 4 P 2011 : [place] Baby girl: Frankie # hypothyroidism. Levothyroxine 50 mcg daily. TSH free T4 each trimester 10/07/24: TSH 1.01, Free T4 1.11 12/05/24: TSH 1.33, Free T4 1.04 01/26/25: TSH 1.66 # Latter-day. Does not accept blood products. # BMI 34.3 A1c 5.1% # history of depression. States she took medication in the past. Does not currently desire any medication for mood management. # Rh negative RhoGAM: Vaccinations: Flu: Recommended. Declines Covid: Recommended. Declines Tdap: 02/09/2025 RSV: N/A H&P: Dr. Sue on 04/03 Last pap: @ [facility] - Problem Based A/P Additional Plan (1) : Status: Acute Plan Postdates . Unfavorable cervix with Almanzar score = 6. Reassuring status with category I tracing. GBS negative. Delivery/Labor/Induction Plan Induction method: per misoprostol protocol OB Exam Physical Exam Narrative: Physical exam: General: No acute distress Psych: Alert and oriented x3, full affect HEENT: Normocephalic, atraumatic Neck: No cervical adenopathy, no thyromegaly Heart: Regular rate and rhythm, no murmur rub or gallop Lungs: Clear to auscultation bilaterally Abdomen: Soft, nontender, gravid, cephalic lie Lower extremities: No edema or erythema Pelvic exam: Cervical exam per RN is 2.5 cm / 60 / -3 / midposition / moderate consistency
[2025-04-28 17:28] LABS: Hematocrit* 34.5 % (33.0-51.0); Hemoglobin* 11.8 gm/dL (12.0-16.0); Immature Granulocytes Pct Auto 0.9 %; Mean Corpuscular HGB Conc 34 gm/dL (32-36); Mean Corpuscular Hemoglobin 32 pg (26-34); Mean Corpuscular Volume 94 fL (80-100); RDW Coefficient of Variation % 13.0 % (11.5-15.5); Red Blood Count* 3.68 m/uL (4.00-5.20); White Blood Count* 12.08 K/uL (4.50-11.00)
[2025-04-28 17:43] LABS: Immature Granulocytes Abs Auto 0.10 K/uL (0.00-0.30); Lymphocytes Absolute Auto 2.30 K/uL (0.90-2.90)
[2025-04-28 17:52] LABS: Slide Review Reflex No
[2025-04-28] MEDS: OXYTOCIN 30 unit/500 ML in NS 30 UNIT/500 ML BAG 300 UNIT IVPB (20:11)
[2025-04-28] MEDS: LIDOCAINE 1 % PF 30 ML INJECTION (20:15)
--- NOTE | 2025-04-28 20:42 | W.PM.VAGD1_ITS ---
Procedure Delivery date: 04/28/25 Procedure Done: Global Procedure Details: The patient is a 35 year-old G 4 P 2-0-1-2 woman admitted on 04/28/2025 at 41 Weeks, 0 Days gestation for postdates induction of labor.? Cervical exam on admission was 2.5 cm/60 % effaced/-3 station with membranes intact in vertex presentation.? heart rate demonstrated a category 1 tracing.? She had 2 doses vaginal Cytotec for cervical ripening and then progressed without further intervention into active labor. ? Labor Analgesia:? Nitrous oxide ? Pitocin:? Only for active management of 3rd stage ? Labor onset:? 7:34 p.m. AROM occurred at 7:59 p.m. with clear fluid. ? Complete:? 8:04 p.m. ? Pushing:? 8:05 p.m. ? heart tones during second stage were reassuring. ? At 8:10 p.m. a viable female infant delivered in vertex CORWIN presentation over small second-degree perineal laceration via spontaneous vaginal delivery.? was placed on bed per maternal request.? Cord was clamped and cut after a 30 second delay.? Nose and mouth were bulb suctioned.? weight pending.? 9 at 1 minute and 9 at 5 minutes.? Shoulder dystocia: No.? Nuchal cord: Yes, x1, reduced prior to delivery of the anterior shoulder. ? Placenta delivered spontaneously and complete at 8:25 p.m. with a 3 vessel cord. ? Mother and were stable after delivery. ? Lacerations:? Small second-degree perineal and left hymeneal ring, repaired with 2-0 and 3-0 Vicryl, respectively, after infiltration with 12 mL of 1% lidocaine. ? Blood loss: 150 mL. Blood loss measurement type: QBL ? Sponge and needles counts are correct. Events: Labor Induction Intrapartal Events: Labor Augmentation Delivery augmentation: rupture of membranes Delivery monitor: external FHT Route of delivery: Episiotomy description: None Laceration description: Vaginal - 1st Degree Delivery repair: Vicryl Estimated blood loss (mL): 150 Complications: None [place] Infant Gender: Female total score - 1 minute: 9 total score - 5 minute: 9
[2025-04-28] MEDS: IBUPROFEN 600 MG TABLET PO (20:52)
[2025-04-28] MEDS: ACETAMINOPHEN 500 MG TABLET 1000 MG PO (22:34)
[2025-04-29] MEDS: IBUPROFEN 600 MG TABLET PO ×3 (03:43→19:06)
[2025-04-29 03:45] VITALS: BP 135/91; PULSE 69; RESP 18; TEMP 36.8; O2SAT 97
[2025-04-29 04:03] VITALS: BP 120/87
[2025-04-29 06:37] LABS: Hemoglobin* 12.6 gm/dL (12.0-16.0)
[2025-04-29] MEDS: DOCUSATE SODIUM 100 MG CAPSULE PO (08:05)
[2025-04-29] MEDS: ACETAMINOPHEN 500 MG TABLET 1000 MG PO ×3 (08:06→22:47)
[2025-04-29 08:14] LABS: Hematocrit* 37.3 % (33.0-51.0); Immature Granulocytes Pct Auto 0.1 %; Mean Corpuscular HGB Conc 34 gm/dL (32-36); Mean Corpuscular Hemoglobin 32 pg (26-34); Mean Corpuscular Volume 95 fL (80-100); RDW Coefficient of Variation % 13.2 % (11.5-15.5); Red Blood Count* 3.93 m/uL (4.00-5.20); White Blood Count* 16.62 K/uL (4.50-11.00)
[2025-04-29 08:15] LABS: Immature Granulocytes Abs Auto 0.00 K/uL (0.00-0.30); Lymphocytes Absolute Auto 2.80 K/uL (0.90-2.90); Slide Review Reflex No
[2025-04-29 08:17] LABS: Alanine Aminotransferase* 11 U/L (4-35); Aspartate Amino Transferase* 23 U/L (12-35); Blood Urea Nitrogen* 7 mg/dL (5-24); Creatinine* 0.6 mg/dL (0.5-1.5); Est. Creatinine Clearance* 129.69; Estimated Glomerular Filt Rate 121 ml/min
[2025-04-29 08:59] VITALS: BP 118/81; PULSE 80; RESP 16; TEMP 36.3; O2SAT 98
--- NOTE | 2025-04-29 09:15 | PM.OBPNVD1 ---
OB - PN:Subj Subjective Date Seen: 04/29/25 Patient comments OB post-: no complaints, pain well controlled, tolerating diet and flatus present Baker status: Narrative: The patient feels well.? The pain is well controlled with current medications.? She has no new complaints.? Urinary output is adequate and she is voiding without difficulty.? Has a good appetite, is tolerating a general diet, is passing flatus, and has not had a bowel movement.? Has scant amount of rubra lochia.? She is ambulating well. She is and reports it is going well.? OB - PN: Obj Exam Physical Exam: Vital signs: Temp Pulse Resp BP Pulse Ox O2 Del Method 97.4 F L 80 16 118/81 98 Room Air 04/29/25 08:59 04/29/25 08:59 04/29/25 08:59 04/29/25 08:59 04/29/25 08:59 04/29/25 08:59 Narrative: GENERAL APPEARANCE:? normal affect, alert, no distress MOOD:? appropriate ABDOMEN:? soft, non-tender the uterine fundus is At Umbilicus, Midline and is appropriate for the stage of recovery. PERINEUM:? mild edema of the perineum. EXTREMITIES:? normal and trace edema OB - PN: Obj Data Labs Labs: Laboratory Results - last 24 hr 04/28/25 04/29/25 04/29/25 17:10 06:28 08:02 WBC 12.08 H 16.62 H RBC 3.68 L 3.93 L Hgb 11.8 L 12.6 Hct 34.5 37.3 MCV 94 95 MCH 32 32 MCHC 34 34 RDW Coeff of Ester 13.0 13.2 Plt Count 207 215 Neut % (Auto) 69.7 74.8 H Lymph % (Auto) 19.3 L 16.9 L Bulloch % (Auto) 9.4 7.8 Eos % (Auto) 0.5 0.2 Baso % (Auto) 0.2 0.2 Neut # (Auto) 8.40 H 12.40 H Lymph # (Auto) 2.30 2.80 Bulloch # (Auto) 1.10 H 1.30 H Eos # (Auto) 0.10 0.00 Baso # (Auto) 0.00 0.00 Abs Immat Gran (auto) 0.10 0.00 Imm/Tot Granulo (auto) 0.9 0.1 BUN 7 Creatinine 0.6 Estimated Creat Clear 129.69 Estimated GFR 121 AST 23 ALT 11 Blood Type O Negative Antibody Screen NEGATIVE OB - PN: A/P Delivery Assessment and Plan (1) Gestational hypertension: Problem details: 2 elevated BPs more than 4 hours apart Status: Acute Assessment and Plan: Continue close monitoring of BPs PreE labs ordered will FU. (2) : Status: Acute Plan day: 1 Plan: routine care Comments: If stable, plan to discharge home tomorrow am.
[2025-04-29 13:20] VITALS: BP 128/81; PULSE 92; RESP 16; TEMP 36.4; O2SAT 96
[2025-04-29 16:52] VITALS: BP 131/83; PULSE 76; RESP 16; TEMP 36.3; O2SAT 97
[2025-04-29 20:47] VITALS: BP 127/84; PULSE 71; RESP 16; TEMP 36.4; O2SAT 97
[2025-04-30] MEDS: IBUPROFEN 600 MG TABLET PO (00:43)
[2025-04-30 00:48] VITALS: BP 129/82; PULSE 86; RESP 16; O2SAT 97
[2025-04-30] MEDS: ACETAMINOPHEN 500 MG TABLET 1000 MG PO (06:27)
[2025-04-30 06:35] VITALS: BP 134/91; PULSE 67; RESP 16; TEMP 36.3; O2SAT 98
[2025-04-30 06:54] VITALS: BP 132/86
--- NOTE | 2025-04-30 08:48 | P.DS_ITS ---
DS: Providers Provider Date Seen: 04/30/25 Date of admission: 04/28/25 11:19 Primary care physician: Not a Local Provider Admitting Clinician: Irene Robbins MD Attending Physician on discharge: Gurwinder Clement MD Date of Discharge: 04/30/25 DS: Diagnosis Discharge Diagnosis (1) Gestational hypertension: Status: Acute Problem details: 2 elevated BPs more than 4 hours apart-diagnosed (2) Spontaneous vaginal delivery: Status: Acute Exam Narrative: Exam Narrative: GENERAL APPEARANCE:? normal affect, alert, no distress MOOD:? appropriate CHEST:? clear to auscultation HEART:? regular rate and rhythm ABDOMEN:? soft, non-tender the uterine fundus is At Umbilicus, Midline and is appropriate for the stage of recovery. PERINEUM:? mild edema of the perineum, there is a second Perineal Lacer ation,?that is healing well. EXTREMITIES:? normal and trace edema Const: Vital Signs, click to edit/add: Vital Signs - 24 hr 04/29/25 08:59 04/29/25 13:20 04/29/25 16:52 Temperature 97.4 F L 97.6 F 97.3 F L Pulse Rate [Left] 80 92 76 Respiratory Rate 16 16 16 Blood Pressure [Le ft Arm] 118/81 128/81 131/83 Pulse Oximetry 98 96 97 Oxygen Delivery Me thod Room Air Room Air Room Air 04/29/25 20:47 04/30/25 00:48 04/30/25 06:35 Temperature 97.6 F 97.3 F L Pulse Rate [Left] 71 86 67 Respiratory Rate 16 16 16 Blood Pressure [Le ft Arm] 127/84 129/82 134/91 H Pulse Oximetry 97 97 98 Oxygen Delivery Me thod Room Air Room Air Room Air 04/30/25 06:54 Temperature Pulse Rate [Left] Respiratory Rate Blood Pressure [Le ft Arm] 132/86 Pulse Oximetry Oxygen Delivery Me thod OB - DS: Summary Hospital Course Hospital Course: The patient is a 35 year old G 4 P 3013 at 41 weeks gestation that was admitted to the Center on 04/28/25 for IOL due to postdates. She had an uncomplicated vaginal delivery. She delivered a viable female infant. She is breast feeding. the patient has done well. She did have 2 mild range elevated BPs diagnostic of GHTN. Labs completed and normal. No PROFESSIONAL [employer]IVER irritability symptoms. So far, no need to start oral antihypertensive medication. Peripartum Data delivery method: Vaginal Laceration description: Perineal - 2nd Degree complications: none [place] Gender: Female Infant Discharge Plan: Home Status at Discharge Functional status at discharge: independent ambulation Overall status at discharge: patient is progressing back to baseline Time Spent with Patient Time attestation: Total time spent providing and/or coordinating discharge services: Time spent: Less than 30 minutes Discharge Plan Discharge Disposition: Home, Self-Care Date of Admission: 04/28/25 11:19 Attending Provider on Discharge: Nilda Clement Consulting Providers: Irene Robbins Primary Care Provider: Provider,Not a Local Condition: Stable Anticipated Discharge Date/Time: 04/30/25 12:00 Discharge Medications: New acetaminophen 500 mg Tablet 1,000 mg PO Q6H PRNQty: 30 0RF ibuprofen 600 mg Tablet 600 mg PO Q6H PRNQty: 30 0RF Continued omeprazole 10 mg capsule,delayed release(DR/EC) 20 mg PO ONCE DHA 200 mg capsule 200 mg PO DAILY magnesium oxide 400 mg (241.3 mg magnesium) tablet 400 mg PO DAILY omega [id number]-[id number]-fish oil [Fish Oil] 60-90-500 mg capsule 1 cap PO QDAY levothyroxine 50 mcg tablet 50 mcg PO DAILY Qty: 90 4RF Discharge Orders: Discharge Order (Routine); Ordered 04/30/25 Ordered By: Nilda Clement Patient Education: OB Vaginal/Breast Feeding Additional Instructions: Measure blood pressures at home twice a day. Notify clinic if there are blood pressures persistently more than 140 systolics, 90s diastolics or if any symptoms such as headaches that do not go away with pain medication, visual changes such as dark spots in vision, pain in the upper abdomen-that moves towards the upper right side. Follow-up in clinic in 3-5 days after discharge for blood pressure check. Follow-up in clinic in 2 weeks for mood and follow-up. Follow-up in 6 weeks in clinic for regular visit. Activity Level: Activity as Tolerated Activity Detail: Nothing vaginally for 6 weeks. Discharge Diet: Regular Follow Up Appointments: Provider,Not a Local [Primary Care Provider, Family Practice] Forms: Patient Belongings, MyHealth Info Instructions
[2025-04-30 08:57] VITALS: BP 121/78; PULSE 66; RESP 16; TEMP 36.7; O2SAT 97
[2025-04-30] MEDS: DOCUSATE SODIUM 100 MG CAPSULE PO (09:05)
[2025-04-30 13:13] VITALS: BP 118/79; PULSE 84; RESP 16; TEMP 36.6; O2SAT 97
== END 2025-04-30 15:05 | disposition home or self-care (01) | DRG 560 ==
PROVIDERS: Obstetrics & Gynecology; Admitting Provider Obstetrics & Gynecology; Visit Provider Obstetrics & Gynecology
DX: O48.0 Post-term pregnancy (principal); O13.4 Gestational [pregnancy-induced] hypertension without significant proteinuria, complicating childbirth; O70.1 Second degree perineal laceration during delivery; O99.284 Endocrine, nutritional and metabolic diseases complicating childbirth; E03.9 Hypothyroidism, unspecified; Z37.0 Single live birth; Z3A.41 41 weeks gestation of pregnancy
CPT/HCPCS: 36415; 59200; 82565; 84450; 84460; 84520; 85018; 85025; 85461; 86592; 86850; 86900; 86901; A9270; J2003; J2791